=== PATIENT | male | born 1980 | race African-American/Black ===

== ENCOUNTER 2017-03-28 13:05 | Emergency (ER) | payer OTHER ==
[~2017-03-28] VITALS: Ht 182.9 cm; Wt 145.4 kg
[2017-03-28] MEDS ORDERED: DIVA125T PO (13:32)
[2017-03-28] MEDS ORDERED: ARIP5TAB9 PO (13:32)
[2017-03-28 13:53] LABS: BASOPHILS % (AUTO) 1.3 % (0.0-2.0); HEMATOCRIT 46.1 % (41-53); HEMOGLOBIN 15.9 g/dL (13.5-17.5); LYMPHOCYTES # (AUTO) 2.8 K/uL (1.0-4.8); LYMPHOCYTES % (AUTO) 29.6 % (22.0-44.0); MEAN CORPUSCULAR HGB CONC 34.4 G/dL (31.0-37.0); MEAN CORPUSCULAR VOLUME 90 fL (80-100); MONOCYTES # (AUTO) 0.8 K/uL (0.1-1.0); MONOCYTES % (AUTO) 7.8 % (2.0-9.0); NEUTROPHILS # (AUTO) 5.6 K/uL (1.8-7.7); NEUTROPHILS % (AUTO) 58.3 % (40.0-70.0); PLATELET COUNT (AUTO) 219 K/uL (150-450); RED BLOOD CELL COUNT(AUTO) 5.11 MIL/uL (4.50-5.90); RED CELL DISTRIBUTION WIDTH 14.2 % (11.5-14.5); WHITE BLOOD COUNT (AUTO) 9.6 K/uL (4.5-11.0)
[2017-03-28 14:07] LABS: GLUCOSE,POINT OF CARE 166 MG/DL (70-110)
[2017-03-28 14:29] LABS: VALPROIC ACID < 3 mcg/mL (50-100)
[2017-03-28] MEDS ORDERED: LevETIRAcetam 1,000 MG in DEXTROSE 5%-WATER 100 ML IV ONE (14:30)
[2017-03-28] MEDS ORDERED: VALPROATE SODIUM 500 MG in DEXTROSE 5%-WATER 50 ML IV ONE (14:45)
[2017-03-28 18:40] VITALS: BP 121/56
== END 2017-03-28 18:58 | disposition home or self-care (01) ==
LOC: EMS 13:08
DX: G40.909 Epilepsy, unspecified, not intractable, without status epilepticus (principal)
CPT/HCPCS: 36415; 70450; 80156; 80164; 82948; 82962; 84484; 85025; 93005; 96365; 96375; 99285; J0712; J3490; J7060 ×2

== ENCOUNTER 2017-05-18 22:55 | Emergency (ER) | payer OTHER ==
[~2017-05-18] VITALS: Ht 177.8 cm; Wt 147.0 kg
[~2017-05-18 22:55] MED LIST: ARIP5TAB8 PO; DIVA125T PO
[2017-05-18] MEDS ORDERED: LEVE250T55 PO (23:03)
[2017-05-18] MEDS ORDERED: DIVA250T25 PO (23:03)
[2017-05-18] MEDS ORDERED: ARIP5TAB8 PO (23:08)
[2017-05-18 23:58] LABS: EOSINOPHILS % (AUTO) 2.2 % (1.0-6.0); HEMATOCRIT 43.6 % (41-53); HEMOGLOBIN 14.8 g/dL (13.5-17.5); LYMPHOCYTES # (AUTO) 3.2 K/uL (1.0-4.8); LYMPHOCYTES % (AUTO) 33.9 % (22.0-44.0); MEAN CORPUSCULAR HEMOGLOBIN 30.7 pg (26.0-34.0); MEAN CORPUSCULAR VOLUME 90 fL (80-100); MONOCYTES # (AUTO) 0.5 K/uL (0.1-1.0); MONOCYTES % (AUTO) 5.4 % (2.0-9.0); NEUTROPHILS # (AUTO) 5.5 K/uL (1.8-7.7); NEUTROPHILS % (AUTO) 57.5 % (40.0-70.0); RED BLOOD CELL COUNT(AUTO) 4.83 MIL/uL (4.50-5.90); RED CELL DISTRIBUTION WIDTH 13.9 % (11.5-14.5); WHITE BLOOD COUNT (AUTO) 9.6 K/uL (4.5-11.0)
[2017-05-19 00:11] LABS: ANION GAP 6 mmol/L (8-16); CALCIUM, TOTAL 8.4 mg/dL (8.8-10.5); CARBON DIOXIDE 27 mmol/L (22-29); CHLORIDE 107 mmol/L (98-107); CREATININE 1.08 mg/dL (0.60-1.30); GLOMERULAR FILTR. RATE CALC > 60 mL/min (>60); POTASSIUM 4.2 mmol/L (3.5-5.1); SODIUM SERUM 140 mmol/L (136-145); UREA NITROGEN, BLOOD 9 mg/dL (7-18)
[2017-05-19 00:18] LABS: ALANINE AMINOTRANSFERASE 33 U/L (12-78); ALBUMIN 3.3 g/dL (3.4-5.0); ASPARTATE AMINOTRANSFERASE 22 U/L (15-37); BILIRUBIN,TOTAL 0.3 mg/dL (0.1-1.0); PLATELET COUNT (AUTO) 188 K/uL (150-450); RBC MORPHOLOGY COMMENT NORMAL RBC MORPH; TOTAL PROTEIN, SERUM 6.8 g/dL (6.4-8.2); VALPROIC ACID 16 mcg/mL (50-100)
[2017-05-19] MEDS ORDERED: LevETIRAcetam 1,000 MG in DEXTROSE 5%-WATER 100 ML IV ONE (00:30)
[2017-05-19] MEDS ORDERED: DIVALPROEX SODIUM 500 MG ER TABLET PO ONE (01:15)
[2017-05-19 01:50] VITALS: BP 122/87
== END 2017-05-19 02:30 | disposition home or self-care (01) ==
LOC: EMS 22:56
DX: G40.909 Epilepsy, unspecified, not intractable, without status epilepticus (principal)
CPT/HCPCS: 36415; 80053; 80164; 85025; 96365; 99284; G0480; J0712; J7060

== ENCOUNTER 2024-06-24 21:30 | Emergency (ER) | payer OTHER ==
[~2024-06-24] VITALS: Ht 174 cm; Wt 142.4 kg
[~2024-06-24 21:30] MED LIST changes: +ARIP5TAB37 PO; -ARIP5TAB8 PO; +DIVA-111 PO; -DIVA125T PO; +LEVE250T81 PO
[2024-06-24] MEDS: PROPARACAINE HCL 0.5% 15 ML OPHTHALMIC SOLUTION OD ONE (22:44)
[2024-06-24] MEDS: ERYTHROMYCIN 0.5% 3.5 GM TUBE OPHTHALMIC OINTMENT OS ONE (23:00)
[2024-06-24] MEDS ORDERED: NICO-703 TD (23:02)
[2024-06-24 23:15] VITALS: BP 129/80; PULSE 69; RESP 18; TEMP 97.3; O2SAT 100
== END 2024-06-24 23:36 | disposition home or self-care (01) ==
LOC: EMS 21:30
DX: S05.02XA Injury of conjunctiva and corneal abrasion without foreign body, left eye, initial encounter (principal); F17.210 Nicotine dependence, cigarettes, uncomplicated; Z87.820 Personal history of traumatic brain injury; Z79.899 Other long term (current) drug therapy; W22.8XXA Striking against or struck by other objects, initial encounter; Y93.89 Activity, other specified; Y92.89 Other specified places as the place of occurrence of the external cause; Y99.8 Other external cause status
CPT/HCPCS: 99283; 99406